=== PATIENT | female | born 1985 | race Caucasian/White ===

== ENCOUNTER → 2016-09-22 | Outpatient (CLI) | payer OTHER ==
[~2016-09-22] MED LIST: B-COTAB41 PO; TAB-TAB PO; TYLE500T PO
== END ==
LOC: HPND 10:50
PROVIDERS: ATTEND Obstetrics & Gynecology
DX: Z36 Encounter for antenatal screening of mother (principal)
CPT/HCPCS: 36416; 76813

== ENCOUNTER 2017-03-24 15:03 | Inpatient (IN) | payer OTHER ==
[2017-03-24] VITALS (15 sets, daily range): BP systolic 99–126; BP diastolic 58–85; PULSE 73–94; RESP 15–20; TEMP 97.8–98.4; O2SAT 98–100
[2017-03-24] MEDS: LACTATED RINGER'S 1000 ML INJ 1,000 ML IV SCH ×2 (02:40→13:04)
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
[2017-03-24] MEDS ORDERED: OXYTOCIN 10 UNIT/ML AMP ONE (15:58)
[2017-03-24 16:14] LABS: AUTOMATED NEUTROPHIL # 7.1 TH/MM3 (1.8-7.7); BASOPHIL % 0.2 % (0.0-2.0); EOSINOPHIL % 0.5 % (0.0-4.0); HEMATOCRIT 40.1 % (35.0-46.0); HEMO FLAGS DIFF FINAL; LYMPH % 18.9 % (9.0-44.0); LYMPHOCYTE # 1.8 TH/MM3 (1.0-4.8); MEAN CELL VOLUME 89.3 FL (80.0-100.0); MEAN CORPUSCULAR HEMOGLOBIN 30.5 PG (27.0-34.0); MEAN CORPUSCULAR HGB CONC 34.1 % (32.0-36.0); MONO % 6.5 % (0.0-8.0); NEUT % 73.9 % (16.0-70.0); PLATELET COUNT 166 TH/MM3 (150-450); RED BLOOD COUNT 4.49 MIL/MM3 (4.00-5.30); RED CELL DISTRIBUTION WIDTH 13.4 % (11.6-17.2); WHITE BLOOD COUNT 9.6 TH/MM3 (4.0-11.0)
[2017-03-24] MEDS ORDERED: CITRIC ACID-SODIUM CITRATE LIQ 30 ML UDC ONE (16:17)
[2017-03-24 16:18] LABS: BACTERIA, URINE FEW /hpf; BLOOD, URINE NEG (NEG); COMMENT (UR) CULT NOT INDICATED; CULTURE IF INDICATED CULT NOT INDICATED; GLUCOSE,URINE NEG (NEG); KETONE, URINE NEG (NEG); NITRITE,URINE NEG (NEG); PH, URINE 6.5 (5.0-8.5); SQUAMOUS EPITHELIAL CELL URINE 2 /hpf (0-5); URINE COLOR YELLOW (YELLW/STRAW)
[2017-03-24] MEDS ORDERED: ceFAZolin INJ 1,000 MG VIAL ONE (16:34)
[2017-03-24] MEDS ORDERED: SIMETHICONE 80 MG CHEWABLE TAB PO PRN (16:45)
[2017-03-24] MEDS ORDERED: KETOROLAC TROMETHAMINE 60 MG/2 ML (IM) VIAL IM PRN (16:45)
[2017-03-24] MEDS ORDERED: ONDANSETRON HCL 4 MG/2 ML VIAL IVP PRN (16:45)
[2017-03-24] MEDS ORDERED: OXYTOCIN 30 UNITS-500ML PREMIX 500 ML IV ONE (16:45)
[2017-03-24] MEDS ORDERED: oxyCODONE/ACETAMINOPHEN 5 MG/325 MG TAB PO PRN (16:45)
[2017-03-24] MEDS ORDERED: ZOLPIDEM TARTRATE 5 MG TAB PO PRN (16:45)
[2017-03-24] MEDS ORDERED: SODIUM CHLORIDE 0.9% FLUSH 5 ML FLUSH IV PRN (16:45)
[2017-03-24] MEDS ORDERED: KETOROLAC TROMETHAMINE 30 MG/ML (IVP) VIAL IV PUSH PRN (16:45)
[2017-03-24] MEDS ORDERED: MEASLES, MUMPS, RUBELLA VACCINE 0.5 ML VIAL SQ ONE (16:45)
[2017-03-24] MEDS ORDERED: MORPHINE SULFATE PF 5 MG/10 ML VIAL ONE (17:32)
[2017-03-24] MEDS ORDERED: ONDANSETRON HCL 4 MG/2 ML VIAL ONE (17:32)
[2017-03-24] MEDS ORDERED: OXYTOCIN 30 UNITS-500ML PREMIX 500 ML IV PRN (18:15)
[2017-03-24] MEDS ORDERED: ACETAMINOPHEN 1000 MG/100 ML 100 ML IV ONE (18:25)
[2017-03-24] MEDS ORDERED: OXYTOCIN 30 UNITS-500ML PREMIX 500 ML ONE (19:36)
[2017-03-24] MEDS ORDERED: EPIDURAL-DIPHENHYDRAMINE HCL 50 MG CAP PO PRN (20:00)
[2017-03-24] MEDS ORDERED: EPIDURAL-NALOXONE HCL 0.4 MG/ML AMP IV PRN (20:00)
[2017-03-24] MEDS ORDERED: EPIDURAL-NO SYSTEMIC NARCOTICS PRN (20:00)
[2017-03-24] MEDS ORDERED: EPIDURAL-DO NOT ADMINISTER ANTICOAGULANTS PRN (20:00)
[2017-03-24] MEDS ORDERED: EPIDURAL-DIPHENHYDRAMINE HCL 50 MG/ML VIAL IV PUSH PRN (20:00)
[2017-03-24] MEDS ORDERED: SODIUM CHLORIDE 0.9% FLUSH 5 ML FLUSH IV SCH (21:00)
[2017-03-25] VITALS: BP 107/69; PULSE 73; RESP 18; TEMP 98.4
[2017-03-25] MEDS: ACETAMINOPHEN 1000 MG/100 ML VIAL IV SCH ×3 (00:57→09:40)
[2017-03-25 04:00] VITALS: BP 98/62; PULSE 77; RESP 18; TEMP 98.7
[2017-03-25] MEDS: oxyCODONE/ACETAMINOPHEN 5 MG/325 MG TAB PO PRN ×2 (06:07→21:51)
[2017-03-25] MEDS: DOCUSATE SODIUM 50 MG/SENNA 8.6 MG TAB PO PRN ×2 (06:07→21:50)
[2017-03-25] MEDS: IBUPROFEN 600 MG TAB PO PRN ×3 (06:07→21:50)
[2017-03-25 08:00] VITALS: BP 97/64; PULSE 18; PULSE 89; RESP 18; TEMP 97.5; O2SAT 95
[2017-03-25 09:05] LABS: AUTOMATED NEUTROPHIL # 8.8 TH/MM3 (1.8-7.7); BASOPHIL % 0.3 % (0.0-2.0); EOSINOPHIL % 0.3 % (0.0-4.0); HEMATOCRIT 32.5 % (35.0-46.0); HEMO FLAGS DIFF FINAL; LYMPH % 14.6 % (9.0-44.0); LYMPHOCYTE # 1.7 TH/MM3 (1.0-4.8); MEAN CELL VOLUME 90.2 FL (80.0-100.0); MEAN CORPUSCULAR HEMOGLOBIN 30.6 PG (27.0-34.0); MEAN CORPUSCULAR HGB CONC 33.9 % (32.0-36.0); MONO % 7.4 % (0.0-8.0); NEUT % 77.4 % (16.0-70.0); PLATELET COUNT 131 TH/MM3 (150-450); RED CELL DISTRIBUTION WIDTH 13.4 % (11.6-17.2); WHITE BLOOD COUNT 11.4 TH/MM3 (4.0-11.0)
[2017-03-25 09:22] LABS: BICARBONATE 25.3 MEQ/L (21.0-32.0); POTASSIUM 3.6 MEQ/L (3.5-5.1)
--- NOTE | 2017-03-25 09:49 | MP ---
cc: NGUYỄN NAILS DATE OF SURGERY 03/24/2017 PREOPERATIVE DIAGNOSIS Term with macrosomia. POSTOPERATIVE DIAGNOSIS Term with macrosomia, delivered. PROCEDURE Primary low transverse section ANESTHESIA Spinal SURGEON Nguyễn Nails MD CLAY SHOP SUPERVISOR Darlene Powell ESTIMATED BLOOD LOSS FOR THE PROCEDURE About 700 cc FLUIDS One liter of crystalloid. OBJECTIVE FINDINGS Following induction of adequate spinal anesthesia, the patient was prepped and draped supine on the operating table in the left lateral tilt position in the usual sterile fashion with the bladder being drained via [place] catheterization. The abdomen was opened through a Pfannenstiel incision using a knife to cut down through skin to the fascia. The fascia opened transversely, stripped the muscles. Rectus muscles split in the midline and the peritoneum opened sharply without incident. The bladder flap taken down sharply, retracted with a [place] blade. The lower uterine segment was incised transversely with a knife, extended with blunt section. Membranes ruptured revealing clear fluid. The baby was in the LOT position. The vacuum extractor applied to the occiput and used to gently lift the head through the uterine abdominal wound. The mouth was suctioned, cord clamped and cut and baby passed to the awaiting team, a viable, vigorous male, 's 8 and 9, weight 9 pounds even. Cord blood collected for typing, placenta manually removed and the uterine cavity cleaned with laps. The uterus was exteriorized and closed in two layers with a running suture, first with a running locking stitch of Vicryl, second running imbricating stitch of Vicryl. Posterior inspection uterus, tubes and ovaries were normal. The uterus now placed in the cavity. Irrigation performed. No bleeding was evident and the bladder flap was closed with a running 3-0 Vicryl. All laps and retractors were removed. Counts were correct. The anterior peritoneum closed with a running stitch of 2-0 Vicryl. The fascia was closed with a running locking stitch of 0 Vicryl corner to midline and tied, subcuticular running 3-0 Vicryl and skin with a running subcuticular 3-0 Monocryl. Dermabond applied. All counts correct and the patient was awakened and taken to the recovery room in good condition. MD TRIP Tanner/DJKrunal /5:23 PM /9:38 AM
[2017-03-25 15:20] VITALS: BP 98/65; PULSE 86; RESP 18; TEMP 97.6
[2017-03-25 20:00] VITALS: BP 105/70; PULSE 75; RESP 18; TEMP 97.2
[2017-03-26] MEDS: oxyCODONE/ACETAMINOPHEN 5 MG/325 MG TAB PO PRN ×2 (02:01→08:05)
[2017-03-26 03:00] VITALS: BP 94/64; PULSE 72; RESP 18; TEMP 98.2
[2017-03-26] MEDS: IBUPROFEN 600 MG TAB PO PRN ×2 (08:04→13:41)
[2017-03-26] MEDS: DOCUSATE SODIUM 50 MG/SENNA 8.6 MG TAB PO PRN (08:05)
[2017-03-26 09:00] VITALS: BP 115/76; PULSE 96; RESP 18; TEMP 97.8
[2017-03-26] MEDS ORDERED: DIPHTH/TETANUS/ACEL PERTUSSIS (BOOSTER) 0.5 ML VIAL/PFS IM ONE (09:00)
[2017-03-26] MEDS ORDERED: OXYC1TAB63 PO (09:10)
--- NOTE | 2017-03-26 09:11 | HHI.DCPOC ---
Discharge Care Plan Report Symptoms to Your Doctor -Temperature above 100.5 degrees -Redness, of incision or excessive or foul smelling drainage -Unusual pain or calf pain -Increased vaginal bleeding -Painful or difficulty urinating -Feelings of extreme sadness or anxiety after 2 weeks Goals to Promote Your Health * To prevent worsening of your condition and complications * To maintain your health at the optimal level Directions to Meet Your Goals Take your medications as prescribed Follow your dietary instruction Follow activity as directed Ensure plenty of rest for recovery Drink fluids for hydration Keep your appointments as scheduled Take your immunizations and boosters as scheduled If your symptoms worsen call your PCP, if no PCP go to Urgent Care Center or Emergency Room Smoking is Dangerous to Your Health. Avoid second hand smoke Call the 24-hour crisis hotline for domestic abuse at Charlie José MD Mar 26, 2017 09:10
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
== END 2017-03-26 18:36 | disposition home or self-care (01) | DRG 766 ==
LOC: H2EB 15:03 → H1EA 19:46
PROVIDERS: ADMIT Obstetrics & Gynecology; ATTEND Obstetrics & Gynecology
PROC: 10D00Z1 Extraction of Products of Conception, Low, Open Approach (ICD-10-PCS; principal; 2017-03-24)
DX: O36.63X0 Maternal care for excessive fetal growth, third trimester, not applicable or unspecified (principal); Z37.0 Single live birth; Z3A.40 40 weeks gestation of pregnancy
CPT/HCPCS: 59025; 80048; 81001; 85025; 86850; 86900; 86901; 90715; J0131; J0690; J1885; J2274; J2405; J2590; J7120

== ENCOUNTER 2017-12-29 18:52 | Emergency (ER) | payer OTHER ==
[~2017-12-29 18:52] MED LIST changes: -B-COTAB41 PO; +OMEGCAP PO; +PREN29TA PO; -TAB-TAB PO; -TYLE500T PO
[2017-12-29 19:09] VITALS: BP 120/87; PULSE 77; RESP 16; TEMP 97.6; O2SAT 100
--- NOTE | 2017-12-29 20:57 | PD ---
HPI Chief Complaint: Abdominal Pain Time Seen by Provider: 20:43 Travel History International Travel<30 days: No Contact w/Intl Traveler<30days: No Traveled to known affect area: No History of Present Illness HPI 32-year-old white female presents emergency department accompanied by family members for evaluation of abdominal pain. She states that she started to have diarrhea this past Wednesday. She took Imodium [id number] with resolution. She states that earlier today she started getting some mid to lower abdominal cramping. She states that she has had some nausea but no vomiting. She last ate around noon time. She had an RB sandwich. She states now that the day has gone on she has had increasing abdominal cramping. She states the pain is a 6/ 10. Worse with movement and activity. Some relief with remaining still. She states that she is only's passing a small amount of stool. She denies any fever chills. No cough, congestion. No back pain. No dysuria, frequency, hematuria, vaginal discharge or abnormal bleeding. Last mental cycle was 1 week ago. She is on the [employer] [facility] Past Medical History Arthritis: No Asthma: Yes Autoimmune Disease: No Blood Disorders: No Anxiety: No Depression: No Heart Rhythm Problems: No Cancer: No Cardiovascular Problems: No High Cholesterol: No Chemotherapy: No Chest Pain: No Congestive Heart Failure: No COPD: No Cerebrovascular Accident: No Diabetes: No Diminished Hearing: No Endocrine: No GERD: No Glaucoma: No Genitourinary: No Headaches: No Hepatitis: No Hiatal Hernia: No Hypertension: No Immune Disorder: Yes (granuloma annularai) Kidney Stones: No Musculoskeletal: No Neurologic: No Psychiatric: No Reproductive: No Respiratory: No Myocardial Infarction: No Radiation Therapy: No Renal Failure: No Seizures: No Sickle Cell Disease: No Sleep Apnea: No Thyroid Disease: No Ulcer: No Tetanus Vaccination: < 5 Years ?: Not LMP: 12/24/2017 Past Surgical History Narrative Surgical Bilateral inguinal herniorrhaphy AICD: No Body Medical Devices: dental implants Joint Replacement: No Oral Surgery: Yes (rhinoplasty dental implants) Pacemaker: No Other Surgery: Yes (NOSE SEPTO RYNO PLASTI) Social History Alcohol Use: Yes (WINE, 1-2 GLASSES PER WEEK, LAST USED WEDNESDAY) Tobacco Use: No Substance Use: No Allergies-Medications (Allergen,Severity, Reaction): Coded Allergies: adhesive (Unverified Allergy, Severe, rash , 03/02/17) paper tape is ok. cat dander (Unverified Allergy, Unknown, 03/02/17) sneezes watery eyes dog dander (Unverified Allergy, Unknown, 03/02/17) pt states dog dander is ok grass pollen (Unverified Allergy, Unknown, 03/02/17) latex (Unverified Allergy, Unknown, rash, 03/02/17) mold (Unverified Allergy, Unknown, 03/02/17) sneezing oxycodone (Unverified Allergy, Unknown, nausea and vomiting, 03/02/17) rabbit dander (Unverified Allergy, Unknown, 03/02/17) sneezing Reported Meds & Prescriptions Reported Meds & Active Scripts Active Reported [place]-3 Fish Oil/Vitamin (Fish Oil-Cholecalciferol) Unknown Strength Cap Unknown Dose PO DAILY Plus Iron 29-1 mg ( Vit-Iron Carbonyl) 29 Mg Iron-1 Mg Tab 1 Tab PO DAILY Review of Systems General / Constitutional: No: Fever Eyes: No: Visual changes HENT: No: Headaches Cardiovascular: No: Chest Pain or Discomfort Respiratory: No: Shortness of Breath Gastrointestinal: Positive: Nausea, Diarrhea, Abdominal Pain, No: Constipation Genitourinary: No: Urgency, Frequency, Dysuria, Hematuria, Discharge, Vaginal Bleeding Musculoskeletal: No: Pain Skin: No Rash Neurologic: No: Weakness Psychiatric: No: Depression Endocrine: No: Polydipsia Hematologic/Lymphatic: No: Easy Bruising Physical Exam Narrative GENERAL: Well-developed, well-nourished in no apparent distress. Nontoxic appearing. HEAD: Normocephalic, atraumatic. EYES: Pupils equal round and reactive. Extraocular motions intact. No scleral icterus. No injection or drainage. ENT: Nose clear. Throat without erythema, tonsillar hypertrophy or exudate. Uvula midline. Airway patent. NECK: Trachea midline. Supple, nontender, moves head freely. No central bony tenderness or spasm. CARDIOVASCULAR: Regular rate and rhythm without murmurs, gallops, or rubs. RESPIRATORY: Clear to auscultation. Breath sounds equal bilaterally. No wheezes , rales, or rhonchi. GASTROINTESTINAL: Abdomen soft, patient has tenderness in the suprapubic and right lower abdominal area. She has mild guarding but no rebound.. No hepato- splenomegaly, or palpable masses. No CVA tenderness EXTREMITIES: No clubbing, cyanosis, or edema. No joint tenderness. BACK: Nontender without deformity. No flank tenderness. NEUROLOGICAL: Awake, alert and oriented x 3 .Cranial nerves grossly intact. Motor and sensory grossly within normal limits. Normal speech. Data Data Last Documented VS Vital Signs Date Time Temp Pulse Resp B/P (MAP) Pulse Ox O2 Delivery O2 Flow Rate FiO2 12/29/17 19:09 97.6 77 16 120/87 (98) 100 Room Air Orders Orders Complete Blood Count With Diff (12/29/17 20:47) Comprehensive Metabolic Panel (12/29/17 20:47) Lipase (12/29/17 20:47) Urinalysis - C+S If Indicated (12/29/17 20:47) Ed Urine Pregnancytest Poc (12/29/17 20:47) C-Reactive Protein (Crp) (12/29/17 20:47) Sodium Chlor 0.9% 1000 Ml Inj (Ns 1000 M (12/29/17 21:00) Diphenhydramine Inj (Benadryl Inj) (12/29/17 21:00) Metoclopramide Inj (Reglan Inj) (12/29/17 21:00) Hyoscyamine (Levsin) (12/29/17 21:00) MDM Medical Decision Making Medical Screen Exam Complete: Yes Emergency Medical Condition: Yes Medical Record Reviewed: Yes Differential Diagnosis Differential diagnosis: Diarrhea, vomiting, gastroenteritis, UTI, appendicitis, colitis, diverticulitis Narrative Course IV access is obtained. Patient is given Benadryl 50 mg IV, Reglan 10 mg IV, Levsin 0.25 mg sublingual. 1 L bolus of normal saline. Routine laboratory testing CBC, chemistry, lipase, CRP, UA and hCG have been ordered. Condition: Stable James Gómez Dec 29, 2017 20:57
[2017-12-29] MEDS ORDERED: SODIUM CHLOR 0.9% 1000 ML INJ 1,000 ML IV ONE (21:00)
[2017-12-29] MEDS ORDERED: HYOSCYAMINE 0.125 MG TAB PO ONE (21:00)
[2017-12-29] MEDS ORDERED: METOCLOPRAMIDE HCL 10 MG/2 ML VIAL IV PUSH ONE (21:00)
[2017-12-29] MEDS ORDERED: diphenhydrAMINE HCL 50 MG/ML VIAL IV PUSH ONE (21:00)
[2017-12-29 21:33] LABS: AUTOMATED NEUTROPHIL # 4.1 TH/MM3 (1.8-7.7); BASOPHIL % 0.3 % (0.0-2.0); EOSINOPHIL # 0.1 TH/MM3 (0-0.4); EOSINOPHIL % 0.8 % (0.0-4.0); HEMATOCRIT 43.2 % (35.0-46.0); HEMOGLOBIN 14.9 GM/DL (11.6-15.3); LYMPH % 31.7 % (9.0-44.0); LYMPHOCYTE # 2.3 TH/MM3 (1.0-4.8); MEAN CELL VOLUME 83.8 FL (80.0-100.0); MEAN CORPUSCULAR HEMOGLOBIN 28.9 PG (27.0-34.0); MEAN CORPUSCULAR HGB CONC 34.5 % (32.0-36.0); MEAN PLATELET VOLUME 7.7 FL (7.0-11.0); MONO % 10.1 % (0.0-8.0); MONOCYTE # 0.7 TH/MM3 (0-0.9); NEUT % 57.1 % (16.0-70.0); PLATELET COUNT 288 TH/MM3 (150-450); RED BLOOD COUNT 5.15 MIL/MM3 (4.00-5.30); RED CELL DISTRIBUTION WIDTH 13.3 % (11.6-17.2); WHITE BLOOD COUNT 7.2 TH/MM3 (4.0-11.0)
[2017-12-29 21:36] LABS: BILIRUBIN, URINE NEG (NEG); BLOOD, URINE NEG (NEG); GLUCOSE,URINE NEG (NEG); KETONE, URINE NEG (NEG); NITRITE,URINE NEG (NEG); SQUAMOUS EPITHELIAL CELL URINE 3 /hpf (0-5); URINE COLOR LIGHT-YELLOW (YELLW/STRAW); URINE LEUKOCYTE ESTERASE MOD (NEG)
[2017-12-29 21:56] LABS: ALBUMIN 4.2 GM/DL (3.4-5.0); AST (GOT) 19 U/L (15-37); BICARBONATE 24.3 MEQ/L (21.0-32.0); BLOOD UREA NITROGEN 11 MG/DL (7-18); CALCIUM 9.6 MG/DL (8.5-10.1); CHLORIDE 103 MEQ/L (98-107); CREATININE 0.82 MG/DL (0.50-1.00); GLOMERULAR FILTRATION RATE 80 ML/MIN (>89); GLUCOSE,RANDOM 74 MG/DL (74-106); SODIUM (NA) 138 MEQ/L (136-145)
[2017-12-29 21:57] LABS: ALT (GPT) 25 U/L (10-53); C-REACTIVE PROTEIN 0.68 MG/DL (0.00-0.30)
[2017-12-29 22:00] LABS: ALKALINE PHOSPHATASE 71 U/L (45-117); TOTAL BILIRUBIN ADULT 0.4 MG/DL (0.2-1.0); TOTAL PROTEIN 8.8 GM/DL (6.4-8.2)
[2017-12-29] MEDS ORDERED: IOHEXOL 350 MG/ML 10 ML VIAL (for RAD DIAG) IVCONTRAST ONE (22:44)
--- NOTE | 2017-12-29 22:50 | RADRPT ---
EXAM DATE: 12/29/2017 10:42 PM EDT AGE/SEX: 32 years / Female INDICATIONS: Diffuse abdominal pain, nausea and vomiting. CLINICAL DATA: This is the patient's initial encounter. Patient reports that signs and symptoms have been present for 1 day and indicates a pain score of 9/10. MEDICAL/SURGICAL HISTORY: None. section. Inguinal hernia repair. ORAL CONTRAST: No oral contrast ingested. RADIATION DOSE: 6.64 CTDI (mGy) COMPARISON: No prior exams available for comparison. TECHNIQUE: Multiple contiguous axial images were obtained through the abdomen and pelvis following b olus infusion of 80 ml Omnipaque 350 (iohexol) nonionic water-soluble contrast as a single exam dos e. No oral contrast ingested. Using automated exposure control and adjustment of the mA and/or kV ac cording to patient size, the radiation dose was kept as low as reasonably achievable to obtain optima l diagnostic quality images. FINDINGS: Lower Lungs: The visualized lower lungs are clear. Liver: The liver has a homogeneous density without space-occupying lesion. There is no dilation of th e biliary tree. Spleen: Homogeneous density without enlargement. Pancreas: Unremarkable without mass or calcification. Kidneys: Normal in size and shape. No evidence of mass or hydronephrosis. Adrenal Glands: Unremarkable. Aorta: The aorta and proximal iliac vessels are grossly unremarkable without aneurysmal dilation. Bowel/Mesentery: Mild nonspecific fluid and gaseous distention of large bowel throughout. Abdominal Wall: Intact. Retroperitoneum: No evidence of adenopathy in the retrocrural, para-aortic, or deep pelvic regions. Bladder: Contours are smooth. Reproductive Organs: No abnormal masses or calcifications seen. Inguinal: Previous bilateral hernia repairs. Bony Structures: Unremarkable. CONCLUSION: Mild nonspecific distention of bowel. Electronically signed by: Charlie Crystal MD 12/29/2017 10:49 PM EDT
[2017-12-29] MEDS ORDERED: LEVS0.124 SL (23:39)
[2017-12-29] MEDS ORDERED: ZOFR4TAB3 SL (23:39)
[2017-12-29 23:49] VITALS: BP 113/76
== END 2017-12-29 23:55 | disposition home or self-care (01) ==
LOC: NEPD 18:52
DX: R10.9 Unspecified abdominal pain (principal); R19.7 Diarrhea, unspecified; R11.2 Nausea with vomiting, unspecified; Z87.09 Personal history of other diseases of the respiratory system
CPT/HCPCS: 74177; 80053; 81001; 83690; 84703; 85025; 86140; 96374; 96375; 99285; J1200; J2765; J7030; Q9967